=== PATIENT | female | born 1945 | race Caucasian/White ===

== ENCOUNTER 2025-08-12 08:46 | Emergency (ER) | payer MEDICARE, SELFPAY ==
--- OUTSIDE RECORDS SUMMARY | 2010-07-28 07:30 | XMS_ITS | Continuity of Care Document ---
Author Organization [facility] Address [address] [place] [phone] Phone Care Team Providers Care Container Crane Operator Name Role Phone David Siddiqui MD Unavailable Unavailable Medications Medication Instructions Dosage Effective Dates (start - stop) Status Comments Lexapro 10 mg Tab take as directed - Activ e SYNTHROID (unknown strength) take as directed Not Available - Active NITRO-DUR (unknown strength) take as directed Not Available - Active BYETTA (unknown strength) take as directed Not Available - Active Glucophage 500 mg Tab take as directed - Active Procedures Procedure Date OV, Est, Mod To High Severity, Mod Compl exity EYE EXAM & TREATMENT, Est, Comprehensive REFRACTION EYE EXAM & TREATMENT, Est, Comprehensive No Rx For This Visit REFRACTION EYE EXAM & TREATMENT, Est, Comprehensive REFRACTION EYE EXAM & TREATMENT, Est, Comprehensive REFRACTION Advance Directives Directive Yes / No Effective Date File Name Resuscitation Not Answered N/A N/A Life Support Not Answered N/A N/A Intubation Not Answered N/A N/A Antibiotics Not Answered N/A N/A IV Fluid Support Not Answered N/A N/A Tube Feed Not Answered N/A N/A Other Directive N/A N/A WARNING:The information contained in this section is historical and is provided for information only and does not constitute a legal document or any assurance that the information is still accurate. Please verify the information with the guevara of the legal document before using it for clinical purposes. Encounters Encounter Description Practice Location Reason(s) For Visit Diagnoses Date Provider Providers Copied on Encounter OV, Est, Mod To High Severity, Mod Complexity [facility], [address] [place] [address], [id number] , [place] tel: [phone] [facility] Other vitreous opacitiesDiabetes mellitus without mention of complication, type II or unspecified type, not stated as uncontrolled Jul-1 3-201 0 Artur David. [address] [place], [place], [id number] , [place]. tel: [phone] Referring Provider: David Serrano, [address] [place], [address] . tel:[phone] [facility], [address] [place] [address], [id number] , tel: [phone] [facility] Diabetes mellitus without mention of complication, type II or unspecified type, not stated as uncontrolledUnspeci fied visual disturbanceSenile nuclear sclerosis Sep-0 9-201 0 Artur David. [address] [place], [place], [id number] , [place]. tel: [phone] Referring Provider: David Serrano, [address] [place], [address] . tel:[phone] [facility], [address] [place] [address], [id number] , tel: [phone] [facility] Diabetes mellitus without mention of complication, type II or unspecified type, not stated as uncontrolledSenile nuclear sclerosis Jun-2 1200 9 Artur David. [address] [place], [place], [id number] , [place]. tel: [phone] Referring Provider: David Serrano, [address] [place], [address] . tel:[phone] [facility], [address] [place] [address], [id number] , [place] tel: [phone] [facility] No Information 9 Artur Hernandez. [address] [place], [place], [id number] , . tel: [phone] [facility], [address] [place] [address], [id number] , tel: [phone] [facility] Diabetes mellitus without mention of complication, type II or unspecified type, not stated as uncontrolled 8 Artur David. [address] [place], [place], [id number] , [place]. tel: [phone] Referring Provider: David Serrano, [address] [place], [address] . tel:[phone] [facility], [address] [place] [address], [id number] , tel: [phone] [facility] Diabetes mellitus without mention of complication, type II or unspecified type, not stated as uncontrolledSenile nuclear sclerosisCortical senile cataract 7 Artur David. [address] [place], [place], [id number] , . tel: [phone] Referring Provider: David Serrano, [address] [place], [address] . tel:[phone] Family History Family Member Type Diagnosis Age At Onset Father Problem (finding) Heart Disease Sister Problem (finding) Diabetes mellitus Grandfather (m) Problem (finding) Diabetes mellitus Mother Problem (finding) Diabetes mellitus Mother Problem (finding) HBP Payers Payer name Insurance type Covered alliance party ID Yanicka randy(s) [facility] [id number] Medicare MB [id number] Social History Type Description Quantity Date Captured Comments Alcohol Use Details No Caffeine Use Details 1 cup per day Tobacco Use Status No Information Smoking Status No Information Sex Female Chief Complaint And Reason For Visit No Information Reason For Referral Reason For Referral No Information History Of Present Illness Encounter Date Complaint History Of Prese nt Illness No Information Functional Status Date Functional Assessmen t No Information Instructions Date Instruction Additional Infor arnold - Return in 1 year f or Complete Exam, with Dr. Siddiqui. Related to Vitreous Floaters Diabetes Type II, - Diabetes type II: no background diabetic retinopathy, no signs of neovascularization noted. Discussed ocular and systemic benefits of blood sugar control. Related to Diabetes Type II Vitreous Floaters, O U - Discussed diagnosis with patient. No treatment is required at present time. Discussed signs and symptoms of retinal detachment. have gel in back of eye that can collapse on itself and cast shadows and cause pt to see floaters. over time floaters may become less noticable. Related to Vitreous Floaters Diabetes Type II, - Diabetes type II: no background diabetic retinopathy, and no signs of neovascularization noted. Discussed ocular and systemic benefits of blood sugar control. Related to Diabetes Type II - Return in 1 year f or Complete Exam, with Dr. Siddiqui. Related to Diabetes Type II Unspecified visual d isturbance, OU - new prob, no addtl w/u needed - vision not affected - will continue to monitor - No signs or evidence of Sarcoid in the eyes on todays exam. No floaters for retinal tears or detatchment seen, eyes are overall healthy. Related to Unspecified visual disturbance Cataract, Nuclear Sc lerosis, OU - established, stable - vision not affected - will continue to monitor Related to Cataract, Nuclear Sclerosis - Return in 1 year f or Complete Exam, with Dr. Siddiqui. Related to Diabetes Type II Diabetes Type II, - Diabetes type II: no background diabetic retinopathy, and no signs of neovascularization noted. Discussed ocular and systemic benefits of blood sugar control. 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 Cataract, Nuclear Sc lerosis, OU - stable - Cataracts are very mild, a simple change in eye glasses jett give her 20/20 va. Related to Cataract, Nuclear Sclerosis Assessments Type Assessment Date No Information Patient Care Teams Name Effective Dates (start - stop) Status Members No Information
--- OUTSIDE RECORDS SUMMARY | 2025-08-07 03:45 | XMS_ITS ---
Author Organization [employer] Address [address] [place], [place] [id number] Care Team Providers Care Shared Services And Outsourcing Manager Name Role Phone Derrek Guzman [phone] REASON FOR VISIT 3 month f/u Medications Medication SIG (Take, Route, Frequency, Duration) Notes Start Date End Date Status Lantus SoloStar 100 UNIT/ML Subcutaneous ; Duration: 55 Days Active Ozempic (1 MG/DOSE) 4 MG/3ML 1mg Subcutaneous once a week; Duration: 28 days Active Losartan Potassium 25 MG Oral; Duration: 90 Days Active Metoprolol Succinate ER 25 MG Oral; Duration: 90 Days Acti ve HumaLOG KwikPen 100 UNIT/ML Subcutaneous ; Duration: 136 Days Active FreeStyle Edwin 2 Sensor - ; Duration: 84 Days Active Cilostazol 50 MG Oral; Duration: 90 Days Active Atorvastatin Calcium 20 MG Oral; Duration: 90 Days Active Albuterol Sulfate HFA 108 (90 Base) MCG/ACT Inhalation; Duration: 67 Days Active busPIRone HCl 5 MG Oral; Duration: 90 Days Active Gabapentin 100 MG Oral; Duration: 90 Days Active Allopurinol 300 MG Oral; Duration: 90 Days Active Levothyroxine Sodium 50 MCG Oral; Duration: 90 Days Active Vital Signs Temperature 97.9 degrees Fahrenheit 08/07/20 25 Blood pressure systolic 160 mm Hg 08/07/20 25 Blood pressure diastolic 90 mm Hg 025 Heart Rate 73 /min 08/07/2025 Weight 119.0 lbs 08/07/2025 Oximetry 98 % 08/07/2025 Encounters Encounter Location Date Provider Diagnosis [facility] [address] [place] [address] 08/07/2025 Derrek Guzman Essential (primary) hypertension I10 ; Malignant neoplasm of upper-outer quadrant of left female breast C50.412 ; Thrombocytopenia D69.6 ; S/P TAVR (transcatheter aortic valve replacement) Z95.2 ; Mixed hyperlipidemia E78.2 ; Acquired hypothyroidism E03.9 ; Type 2 diabetes mellitus with diabetic neuropathy, unspecified (HC Category) E11.40 ; Peripheral vascular disease I73.9 and Presence of cardiac pacemaker Z95.0 Assessments Encounter Date Diagnosis (ICD Code) Assessment Notes Treatment Notes Treatment Clinical Notes Section Notes 08/07/2025 Essential (primary) hypertension (ICD-10 - I10) Changing from Dr. Machado. BP a little high today from stress. of Parkinsons in May 2025 and she is still getting over it. Lost a lot of weight. Going to [place] with friends next week to ride horses. She will follow up with Dr. Saba. 08/07/2025 Malignant neoplasm of upper-outer quadrant of left female breast (ICD-10 - C50.412) 08/07/2025 Thrombocytopenia (ICD-10 - D69.6) 08/07/2025 S/P TAVR (transcatheter aortic valve replacement) (ICD-10 - Z95.2) 08/07/2025 Mixed hyperlipidemia (ICD-10 - E78.2) 08/07/2025 Acquired hypothyroidism (ICD-10 - E03.9) 08/07/2025 Type 2 diabetes mellitus with diabetic neuropathy, unspecified (HC Category) (ICD-10 - E11.40) She will follow up with Dr. Anna. I will order her ozempic for her today. 08/07/2025 Peripheral vascular disease (ICD-10 - I73.9) 08/07/2025 Presence of cardiac pacemaker (ICD-10 - Z95.0) Plan Of Treatment Medication Medication Name Sig Start Date Stop Date Notes Ozempic (1 MG/DOSE) 4 MG/3ML 1mg Subcuta neous once a week; Duration: 28 days Next Appt Details Follow Up: 3 Months, Reason: Provider Name:Derrek campos, 11/06/2025 02:00:00 PM, [address] [facility], [place], [address], Progress Notes * Esperanza HEALY:1945 (79 yo F)Acc No.[id number]:08/07/2025 Progress Notes Patient: Billie GREGORY Provider: Janki Guzman MD :1945 A ge:79 Y S ex:Female Date:08/07/2025 Address:[address] [place] [address], [id number] Subjective: * Chief Complaints: * 1 . 3 month f/u. * ROS: G eneral/Constitutional: Denies C hills. D enies F ever. O phthalmologic: Denies B lurred vision. E NT: Denies S ore throat. R espiratory: Denies C ough. D enies S hortness of breath at rest. D enies W heezing. C ardiovascular: Denies C hest pain with exertion. D enies F luid accumulation in the legs. G astrointestinal: N/V/D D enies. D enies A bdominal pain. ? M usculoskeletal: Denies F alls. N eurologic: Denies B alance difficulty. D enies D ifficulty speaking. D enies G ait abnormality. * Medical History: D M - Dr. anna, Hematology - Dr. Loja., opthamology - Dr. Bean, Cardiology - dr Saba. * Family History: N o Family History documented.. * Medications: T aking Ozempic (1 MG/DOSE) 4 MG/3ML Solution Pen-injector Subcutaneous , Taking Lantus SoloStar 100 UNIT/ML Solution Pen-injector Subcutaneous , Taking HumaLOG KwikPen 100 UNIT/ML Solution Pen-injector Subcutaneous , Taking Metoprolol Succinate ER 25 MG Tablet Extended Release 24 Hour Oral , Taking Losartan Potassium 25 MG Tablet Oral , Taking Levothyroxine Sodium 50 MCG Tablet Oral , Taking Allopurinol 300 MG Tablet Oral , Taking Gabapentin 100 MG Capsule Oral , Taking busPIRone HCl 5 MG Tablet Oral , Taking Albuterol Sulfate HFA 108 (90 Base) MCG/ACT Aerosol Solution Inhalation , Taking Atorvastatin Calcium 20 MG Tablet Oral , Taking Cilostazol 50 MG Tablet Oral , Taking FreeStyle Edwin 2 Sensor - Miscellaneous , Medication List reviewed and reconciled with the patient Objective: * Vitals: W t:119.0lbs, BP:160/90mm Hg, HR:73/min, Temp:97.9F, Oxygen sat %:98%. * Examination: A General Examination: GENERAL APPEARANCE: p leasant, NAD. E YES: P ERRLA, EOMI. E ARS: A U TMs intact, pearly translucent, cone of light present. N PRIYANK/THYROID:?no carotid bruit, no thyroid nodules, no lymphadenopathy. H EART: n o murmurs, regular rate and rhythm. L UNGS: n o wheezes, rales, rhonchi. E XTREMITIES: n o edema. N EUROLOGIC: s peech clear, gait normal. Assessment: * Assessment: 1. E ssential (primary) hypertension - I10 (Primary) 2 . M alignant neoplasm of upper-outer quadrant of left female breast - C50.412 3 . T hrombocytopenia - D69.6 4 . S /P TAVR (transcatheter aortic valve replacement) - Z95.2 & #160; 5 . M ixed hyperlipidemia - E78.2 6 . A cquired hypothyroidism - E03.9 7 . T ype 2 diabetes mellitus with diabetic neuropathy, unspecified (HC Category) - E11.40 8 . P eripheral vascular disease - I73.9 9 . P resence of cardiac pacemaker - Z95.0 Plan: * Treatment: 2. T ype 2 diabetes mellitus with diabetic neuropathy, unspecified (HC Category) Refill Ozempic (1 MG/DOSE) Solution Pen-injector, 4 MG/3ML, 1mg, Subcutaneous, once a week, 28 days, 3 Milliliter, Refills 5. Clinical Notes: She will follow up with Dr. Anna. I will order her ozempic for her today. * Follow Up: 3 Months * Images: * Electronic signature of Jorge Guzman MD on 08/12/2025 at 08:57 AM CDT Sign off status: Pending * Provider: Janki Guzman MD Date: 0 08/07/2025 Generated for Christiani bruna/Ismael/eTransmitting on: 0 08/12/2025 08:57 AM CDT History and Physical Notes * Examination Category Sub-Category Detail Notes Category Not es A General Examination GENERAL APPEARANCE: pleasant, NA D EYES: PERRLA, EOMI EARS: AU TMs intact, vasile y translucent, cone of light present NECK/THYROID: no carotid bruit, no thyroid nodules, no lymphadenopathy HEART: no murmurs, regular rate and rhythm LUNGS: no wheezes, rales, r honchi NEUROLOGIC: speech clear, gait n ormal EXTREMITIES: no edema
--- OUTSIDE RECORDS SUMMARY | 2025-08-08 03:45 | XMS_ITS ---
Author Organization [employer] Address [address] [place], [place] [id number] Care Team Providers Care Ladies Suit Operator Name Role Phone Derrek Gzuman [phone] REASON FOR VISIT EST CARE Medications Medication SIG (Take, Route, Frequency, Duration) Notes Start Date End Date Status Lantus SoloStar 100 UNIT/ML Subcutaneous ; Duration: 55 Days Active Atorvastatin Calcium 20 MG Oral; Duration: 90 Days Active Cilostazol 50 MG Oral; Duration: 90 Days Active Albuterol Sulfate HFA 108 (90 Base) MCG/ACT Inhalation; Duration: 67 Days Active FreeStyle Edwin 2 Sensor - ; Duration: 84 Days Unknown Losartan Potassium 25 MG Oral; Duration: 90 Days Active Levothyroxine Sodium 50 MCG Oral; Duration: 90 Days Active busPIRone HCl 5 MG Oral; Duration: 90 Days Active Allopurinol 300 MG Oral; Duration: 90 Days Active Gabapentin 100 MG Oral; Duration: 90 Days Active Ozempic (1 MG/DOSE) 4 MG/3ML Subcutaneous; Duration: 28 Days Active Metoprolol Succinate ER 25 MG Oral; Duration: 90 Days Acti ve HumaLOG KwikPen 100 UNIT/ML Subcutaneous ; Duration: 136 Days Active Problems Problem Type SNOMED Code ICD Code Onset Dates Problem Status W/U Status Risk Notes Problem Essential hypertension (10603720) Essential (primary) hypertension (I10) 013 Active confirmed Problem Malignant neoplasm of upper-outer quadrant of female breast (581636337) Malignant neoplasm of upper-outer quadrant of left female breast (C50.412) 009 Active confirmed Problem Thrombocytopenia (574703954) Thrombocytopenia (D69.6) 021 Active confirmed Problem History of heart valve repair with prosthesis (622128010170515) S/P TAVR (transcatheter aortic valve replacement) (Z95.2) 023 Active confirmed Problem Mixed hyperlipidemia (981186945) Mixed hyperlipidemia (E78.2) 021 Active confirmed Problem Acquired hypothyroidism (892372895) Acquired hypothyroidism (E03.9) 018 Active confirmed Problem Diabetic peripheral neuropathy associated with type 2 diabetes mellitus (8433085982069) Type 2 diabetes mellitus with diabetic neuropathy, unspecified (HC Category) (E11.40) 023 Active confirmed Problem Peripheral vascular disease (462418509) Peripheral vascular disease (I73.9) 025 Active confirmed Problem Cardiac pacemaker in situ (011573274) Presence of cardiac pacemaker (Z95.0) 023 Active confirmed Encounters Encounter Location Date Provider Diagnosis [address] [address] 08/08/2025 Derrek Guzman Essential (primary) hypertension I10 ; [...] Treatment Notes Treatment Clinical Notes Section Notes 08/08/2025 Essential (primary) hypertension (ICD-10 - I10) 08/08/2025 Malignant neoplasm of upper-outer quadrant of left female breast (ICD-10 - C50.412) 08/08/2025 Thrombocytopenia (ICD-10 - D69.6) 08/08/2025 S/P TAVR (transcatheter aortic valve replacement) (ICD-10 - Z95.2) 08/08/2025 Mixed hyperlipidemia (ICD-10 - E78.2) 08/08/2025 Acquired hypothyroidism (ICD-10 - E03.9) 08/08/2025 Type 2 diabetes mellitus with diabetic neuropathy, unspecified (HC Category) (ICD-10 - E11.40) 08/08/2025 Peripheral vascular disease (ICD-10 - I73.9) 08/08/2025 Presence of cardiac pacemaker (ICD-10 - Z95.0) Plan Of Treatment Next Appt Details Provider Name:Derrek campos, 11/06/2025 02:00:00 PM, [address] [facility], [place], [address], Progress Notes * Mervin HEALYB:1945 (79 yo F)Acc No.[id number]:08/08/2025 Progress Notes Patient: Billie GREGORY Provider: Janki Guzman MD :1945 A ge:79 Y S ex:Female Date:08/08/2025 Address:[address] [place] [address], [id number] Subjective: * Chief Complaints: * 1 . EST CARE. * HPI: N arrative: Recent A1C = 8.2. * Medical History: D M - Dr. askew, Hematology - Dr. Loja., opthamology - Dr. Bean, Cardiology - dr Saba. * Medications: T aking Lantus SoloStar 100 UNIT/ML Solution Pen-injector Subcutaneous , Taking HumaLOG KwikPen 100 UNIT/ML Solution Pen-injector Subcutaneous , Taking Ozempic (1 MG/DOSE) 4 MG/3ML Solution Pen-injector Subcutaneous , Taking Metoprolol Succinate [...] Taking Cilostazol 50 MG Tablet Oral , Unknown FreeStyle Edwin 2 Sensor - Miscellaneous Objective: * Vitals: Assessment: * Assessment: 1. E ssential (primary) hypertension - I10 2 . M alignant neoplasm of upper-outer quadrant of left female breast - C50.412 3 . T hrombocytopenia - D69.6? 4. S /P TAVR (transcatheter aortic valve replacement) - Z95.2 5 . Mixed hyperlipidemia - E78.2 6 . A cquired hypothyroidism - E03.9 ? 7 . T ype 2 diabetes mellitus with diabetic neuropathy, unspecified (HC Category) - E11.40 8 . P eripheral vascular disease - I73.9 9 . P resence of cardiac pacemaker - Z95.0 Plan: * Treatment: * Images: * Electronic signature of Jorge Guzman MD on 08/12/2025 at 08:56 AM CDT Sign off status: Pending * Provider: Janki Guzman MD Date: 0 08/08/2025 Generated for Amy mcfarland/Ismael/Analyitting on: 0 08/12/2025 08:56 AM CDT History and Physical Notes * HPI (History of Present Illness) Category Sub-Category Detail Notes Category Not es Narrative Recent A1C = 8. 2.
--- OUTSIDE RECORDS SUMMARY | 2025-08-12 08:57 | XMS_ITS | CCD ---
Author Name Interface, [id number] lity Address [address] [address] Organization [facility] Address [address] [address] Care Team Providers Care Telecommunication Engineer Name Role Phone Freedom FOURNIER, Berenice Unavailable Unavailable Allergies and Adverse Reactions Reason for Visit Functional Status Medications Problems Social History
--- OUTSIDE RECORDS SUMMARY | 2025-08-12 08:57 | XMS_ITS | Patient Health Record ---
Author Organization [employer] Address [address] [place], [place] [id number] Care Team Providers Care Outsole Tacker Name Role Phone Derrek Guzman [phone] Reason For Referral No Information Medications Medication SIG (Take, Route, Frequency, Duration) Notes Start Date End Date Status Losartan Potassium 25 MG Oral; Duration: 90 Days Active Levothyroxine Sodium 50 MCG Oral; Duration: 90 Days Active Ozempic (1 MG/DOSE) 4 MG/3ML Subcutaneous; Duration: 28 Days Active Metoprolol Succinate ER 25 MG Oral; Duration: 90 Days Acti ve Lantus SoloStar 100 UNIT/ML Subcutaneous ; Duration: 55 Days Active Atorvastatin Calcium 20 MG Oral; Duration: 90 Days Active HumaLOG KwikPen 100 UNIT/ML Subcutaneous ; Duration: 136 Days Active Cilostazol 50 MG Oral; Duration: 90 Days Active Albuterol Sulfate HFA 108 (90 Base) MCG/ACT Inhalation; Duration: 67 Days Active busPIRone HCl 5 MG Oral; Duration: 90 Days Active FreeStyle Edwin 2 Sensor - ; Duration: 84 Days Unknown Allopurinol 300 MG Oral; Duration: 90 Days Active Gabapentin 100 MG Oral; Duration: 90 Days Active Problems Problem Type SNOMED Code ICD Code Onset Dates Problem Status W/U Status Risk Notes Problem Malignant neoplasm of upper-outer quadrant of female breast (538576685) Malignant neoplasm of upper-outer quadrant of left female breast (C50.412) 009 Active confirmed Problem Mixed hyperlipidemia (623138760) Mixed hyperlipidemia (E78.2) 021 Active confirmed Problem Essential hypertension (79845565) Essential (primary) hypertension (I10) 013 Active confirmed Problem Cardiac pacemaker in situ (686334945) Presence of cardiac pacemaker (Z95.0) 023 Active confirmed Problem Acquired hypothyroidism (344622114) Acquired hypothyroidism (E03.9) 018 Active confirmed Problem Thrombocytopenia (936543392) Thrombocytopenia (D69.6) 021 Active confirmed Problem Peripheral vascular disease (640802923) Peripheral vascular disease (I73.9) 025 Active confirmed Problem History of heart valve repair with prosthesis (550688380282466) S/P TAVR (transcatheter aortic valve replacement) (Z95.2) 023 Active confirmed Problem Diabetic peripheral neuropathy associated with type 2 diabetes mellitus (6127924175713) Type 2 diabetes mellitus with diabetic neuropathy, unspecified (HC Category) (E11.40) 023 Active confirmed Vital Signs Heart Rate 73 /min 08/07/2025 Temperature 97.9 degrees Fahrenheit 08/07/2025 Oximetry 98 % 08/07/2025 Blood pressure diastolic 90 mm Hg 08/07/2025 Blood pressure systolic 160 mm Hg 08/07/2025 Weight 119.0 lbs 08/07/2025 Encounters Encounter Location Date Provider Diagnosis [address] [address] 08/07/2025 Derrek Guzman Essential (primary) hypertension I10 [...] Lost a lot of weight. Going to [place] with friends next week to ride horses. [...] Of Treatment Next Appt Details Provider Name:Derrek Alfonso beth, 11/06/2025 02:00:00 PM, [address] [place] [address], [phone], Insurance Providers Payer Name Payer Address Payer Phone Subscriber Number Group Number Insured Name Patient Relationship to Insured Coverage Start Date Coverage End Date [facility] Advantage Plan [address] ROISO RODRIGUEZ [id number] Billie Finney Self - patient is the insured Medical (General) History Medical History History ICD Code DM - Dr. anna Hematology - Dr. Loja. opthamology - Dr. Bean Cardiology - dr Saba
--- OUTSIDE RECORDS SUMMARY | 2025-08-12 08:57 | XMS_ITS ---
Author Name Interface, [id number] lity Address [place] [address] [facility] Address [place] [address] Allergies and Adverse Reactions Plan Reason for Visit Encounters Diagnostic Results Medications Problems Vital Signs
--- OUTSIDE RECORDS SUMMARY | 2025-08-12 08:57 | XMS_ITS | Clinical Summary ---
Author Organization [facility] Facility Address [facility] [place]. [address] [place] [address] Phone Care Team Providers Care Community Facilitator Name Role Phone Jeet Bhandari MD Primary Care Provider [phone] Allergies Active Allergy Reactions Criticality Noted Date Comments Adhesive Tape-Silicones 07/16/2020 Reaction: Hives, Uticaria, Reaction: Hives, Uticaria Ciprofloxacin Low 07/16/2020 Levofloxacin 07/16/2020 Reaction: Tachycardia, Reaction: Tachycardia Morphine 07/16/2020 Reaction: Unspecified, Reaction: Unspecified Penicillins High 07/16/2020 Reaction: Shortness of breath, confusion, Reaction: Shortness of breath, confusion Simvastatin 07/16/2020 Reaction: CAUSES ACHES , Reaction: CAUSES ACHES Active Problems Problem Noted Date Diagnosed Date Gout, unspecified 03/10/2018 Type 2 diabetes mellitus wit h diabetic neuropathy, unspecified 08/24/2017 Stage 3 chronic kidney disease 08/24/2017 Unspecified diastolic (congestive) heart failure 06/23/2016 Unspecified abnormalities of gait and mobility 0 01/03/2015 Tachycardia, unspecified 01/03/2015 Benign neoplasm of colon, unspecified 07/02/2014 Vitamin D deficiency, unspecified 07/02/2014 Hypercalcemia 10/24/2013 Type 2 diabetes mellitus without complications 1 Irritable bowel syndrome without diarrhea 2010 Nontoxic multinodular goiter 07/08/2010 Obesity, unspecified 07/08/2010 Type 2 diabetes mellitus with other specified co mplication 07/08/2010 Hypothyroidism, unspecified 07/08/2010 Essential (primary) hypertension 07/08/2010 Immunizations Immunization Administration Dates Next Due DTaP 05/28/2008 DTaP 5 12/10/2016 Influenza Seasonal Injectabl e Preservative Free 07/16/2019,08/10/2018,07/25/2017,08/15,09/14/2015,08/17/2014,08/17/2013 ,08/25/2012,09/03/2011 Pneumococcal Conjugate 13-Valent 12/10/2016 Pneumococcal Polysaccharide 09/30/2010, 0 Zoster 11/30/2012 Social History Tobacco Use Types Packs/Day Years Used Date Smoking Tobacco: Former Alcohol Use Standard Drinks/Week Comments No 0 (1 standard drink = 0.6 oz pur e alcohol) Comments Unknown Sex and Gender Information Value Date Recorded Sex Assigned at Not on file Legal Sex Female 5:57 PM CDT Gender Identity Not on file Sexual Orientation Not on file Plan of Treatment Health Maintenance Due Date Last Done Comments MMR Vaccines (1 of 1 - Standard series) 12/28/2012 Varicella Vaccines (1 of 2 - 13+ 2-dose series) 12/28/2012 Zoster Vaccines (2 of 3) 01/25/2013 11/30/2012 Influenza Vaccine (#1) 2025 , 09/12/2023, 09/05/2022, Additional history exists COVID-19 Vaccine ( - 2024- season) 2025 08/14/2021, 01/18/2021, 12/29/2020, Additional history exists DTaP,Tdap,and Td Vaccines (5 - Td or Tdap) 08/21/2028 08/21/2018, 12/10/2016, 12/10/2016, Additional history exists Pneumococcal 50+ Yr Completed 12/10/2016, 09/05/2015, 09/05/2014, Additional history exists Ophthalmology Exam Discontinued 09/02/2020, 1 , 01/23/2020 Osteoporosis Screening Completed 07/17/2021 RSV Antibodies Aged Out 09/03/2023 No longer jean patricio based on patient's age to complete this topic RSV Vaccine Completed 09/03/2023 Medicare Wellness Discontinued 12/16/2023, , 01/14/2021, Additional history exists Lipid Panel Discontinued 12/13/2024, 07/11/2022, 02/02/2022, Additional history exists Hemoglobin A1C Discontinued 04/18/2025, 11/16, 06/06/2024, Additional history exists HIB Vaccines Aged Out No longer eligi ble based on patient's age to complete this topic HPV Vaccines Aged Out No longer eligi ble based on patient's age to complete this topic Hepatitis A Vaccines Aged Out No long er eligible based on patient's age to complete this topic Hepatitis B Vaccines Aged Out No long er eligible based on patient's age to complete this topic IPV Vaccines Aged Out No longer eligi ble based on patient's age to complete this topic Meningococcal B Vaccine Aged Out No l onger eligible based on patient's age to complete this topic Meningococcal Vaccine Aged Out No kike antoine eligible based on patient's age to complete this topic Procedures Procedure Name Priority Date/Time Associated Diagnosis Comments DIABETES EYE EXAM Routine 09/02/2020 12:00 AM CDT POCT GLYCOSYLATED HEMOGLOBIN (HGB A1C) Routine 07/16/2020 9:32 AM CDT LIPID PANEL Routine 03/28/2019 7:36 AM CDT from Last 3 Months or Most Recently Relevant to Health Maintenance Results * Hm Diabetes Eye Exam (09/02/2020 12:00 AM CDT) 09/02/2020 Bob Provider HEALTH MAINTENANCE Final Result [facility] * (ABNORMAL) POCT glycosylated hemoglobin (Hb A1C) (07/16/2020 9:32 AM CDT) Glycohemoglobin POC 6.9(H) 4.3 - 5.7 % [facility] 07/16/2020 9:32 AM CDT 07/16/2020 9:41 AM CDT Jeet Bhandari MD POINT OF CARE TEST ORDERABLES Final Result [facility] * (ABNORMAL) Lipid panel (03/28/2019 7:36 AM CDT) HDL 35(L) 45 - 65 mg/dL [facility] Total Cholesterol 177 115 - 200 mg/dL [facility] Comment: Blood assayed for this test may have falsely low test results due to interference from elevated levels of A-mnockk-n-benzoquinone imine (a metabolite of acetaminophen), n-acetylcysteine, and/or metamizole. Triglycerides 251(H) 0 - 200 mg/dL [facility] Comment: Blood assayed for this test may have falsely low test results due to interference from elevated levels of N-adagrb-d-benzoquinone imine (a metabolite of acetaminophen), n-acetylcysteine, and/or metamizole. LDL 92 50 - 190 mg/dL [facility] Comment: Blood assayed for this test may have falsely low test results due to interference from elevated levels of N-wwhzsz-n-benzoquinone imine (a metabolite of acetaminophen), n-acetylcysteine, and/or metamizole. Non-HDL Cholesterol 142 80 - 220 mg/dl [facility] Comment: Blood assayed for this test may have falsely low test results due to interference from elevated levels of P-llspdx-v-benzoquinone imine (a metabolite of acetaminophen), n-acetylcysteine, and/or metamizole. 03/28/2019 7:36 AM CDT 03/28/2019 7:51 AM CDT Historical Provider LAB BLOOD ORDERABLES Claudia lyles Result [facility] from Last 3 Months or Most Recently Relevant to Health Maintenance Care Teams Community Facilitator Relationship Specialty [place] [id number] [facility] [address] [place] [address] PCP - General 03/15/20
[2025-08-12 09:38] VITALS: BP 120/75; PULSE 85; TEMP 36.7; O2SAT 100; BMI 21.5
--- NOTE | 2025-08-12 09:49 | W.ED.FALL ---
HPI - Fall General: Chief Complaint: Fall Stated Complaint: fell of horse yesterday and abd pain Time Seen by Provider: 08/12/25 09:49 Source: patient and family Mode of arrival: wheelchair Limitations: no limitations History of Present Illness: Patient is an 79-year-old female presents to ED today along with family/friend for evaluation. Family states that patient was bucked off of a horse yesterday. They were subsequently seen at [facility]. She believes she underwent CT imaging of her head and cervical spine which were unremarkable. She did receive a few left-sided facial sutures. Family states that this morning patient has seemed weak and somewhat confused. They have noticed a large area of swelling/bruising to the left side of her abdomen. She has been ambulatory since the injury. We were able to get records from [facility]. It looks like she underwent CT head and CT facial bone imaging-no acute injuries. They did not scan cervical spine. She did have x-rays of her bilateral hands which were negative for fractures. MD complaint: fall Onset (ago): day(s) (yesterday) Fall from: other (fall from horse) Fall witnessed: yes, by family Place fall occurred: home Loss of consciousness: None Prolonged down time: no Symptoms prior to fall: none Context: other (bucked off a horse) Severity: moderate Associated symptoms-after fall: Reports abdominal pain (hematoma) and confusion; Denies chest pain, difficulty walking, headache(s), hematuria, lightheadedness or neck pain Related Data Home Medications ?Medication ?Instructions ?Recorded ?Confirmed albuterol sulfate 90 mcg/actuation 1 inh inhalation BID PRN Shortness 08/12/25 08/12/25 aerosol inhaler Of Breath Or Wheezing allopurinol 300 mg tablet 300 mg PO Q48H 08/12/25 08/12/25 aspirin 81 mg tablet,delayed 81 mg PO DAILY 08/12/25 08/12/25 release (Ericka Low Dose Aspirin) atorvastatin 20 mg tablet 20 mg PO DAILY 08/12/25 08/12/25 buspirone 5 mg tablet 5 mg PO TID 08/12/25 08/12/25 cilostazol 50 mg tablet 50 mg PO BID 08/12/25 08/12/25 dexamethasone 4 mg tablet 10 mg PO ONCE 08/12/25 08/12/25 gabapentin 100 mg capsule 100 mg PO TID 08/12/25 08/12/25 insulin glargine 100 unit/mL (3 5 unit SUBCUT BID 08/12/25 08/12/25 mL) subcutaneous pen (Lantus Solostar U-100 Insulin) insulin lispro 100 unit/mL See Rx Instructions .Route .COMPLEX 08/12/25 08/12/25 subcutaneous pen (Humalog KwikPen (U-100) Insulin) levothyroxine 50 mcg tablet 50 mcg PO QAM 08/12/25 08/12/25 losartan 25 mg tablet 25 mg PO DAILY 08/12/25 08/12/25 metoprolol succinate 25 mg 12.5 mg PO QPM 08/12/25 08/12/25 tablet,extended release 24 hr semaglutide 1 mg/dose (4 mg/3 mL) 1 mg SUBCUT Q7D 08/12/25 08/12/25 subcutaneous pen injector (Ozempic) Previous Rx's ?Medication ?Instructions ?Recorded sulfamethoxazole 800 1 tab PO BID 7 days #14 tabs 08/12/25 mg-trimethoprim 160 mg tablet (Bactrim DS) Allergies Allergy/AdvReac Type Severity Reaction Status Date / Time adhesive tape Allergy Unknown Verified 08/12/25 09:48 cephalexin (From Keflex) Allergy Unknown Verified 08/12/25 09:48 Cephalosporins Allergy Unknown Verified 08/12/25 09:48 Penicillins Allergy Unknown Verified 08/12/25 09:48 Review of Systems Eyes: Reports: blurry vision (L) and other (periorbital ecchymosis); Denies: change in vision, photophobia, eye discharge, floaters or seeing flashes ENMT: Denies: throat pain, odynophagia, ear or mastoid pain, ear discharge, nasal discharge, epistaxis or sinus pain Card: Denies: chest pain, palpitations, lightheadedness, syncope or pre-syncope Resp: Denies: dyspnea or pain on inspiration GI: Reports: abdominal pain (hematoma) : Denies: flank pain or hematuria Musc: Denies: neck pain, back pain, extremity pain or joint pain Neuro: Reports: confusion; Denies: headache(s), numbness in extremities, weakness in extremities, sensory changes, lack of coordination, difficulty walking, frequent falls, dizziness or Slurred speech present Physical Exam Const: COMMON NORMALS: no acute distress, patient oriented x3, no limitations, alert and well nourished GENERAL APPEARANCE: cooperative and frail appearing ORIENTATION/CONSCIOUSNESS: Yes awake, Yes oriented to person, Yes oriented to place and Yes oriented to time HENMT: COMMON NORMALS: normocephalic, atraumatic and TM's normal bilaterally HEAD & SCALP: normal to inspection, normocephalic and atraumatic; no Burks's sign, no hematoma and no raccoon eyes FACE & SINUS: ecchymosis, edema and other (L periorbital hematoma; superior orbital sutures) TYMPANIC MEMBRANE: TM's normal bilaterally MOUTH: other (no intraoral injuries noted) Eye: COMMON NORMALS: Equal, round and reactive pupils present and EOMs intact bilaterally GENERAL EYE: normal light reflex VISUAL ACUITY: Yes acuity normal PERIORBITAL: periorbital findings abnormal (L periorbital hematoma/ecchymosis ) PUPIL: Yes Equal, round and reactive pupils present DIRECT OPHTHALMOSCOPY: Yes normal light reflex OTHER: small L medial subconjunctival hemorrhage when I pry her eyelids open-she has a large hematoma present preventing her from opening eye; with eyelids held open she states her vision is normal-maybe slighly blurry-no evidence for globe injury Neck/C-Spine: COMMON NORMALS: full ROM GENERAL: Yes normal visual inspection CERVICAL SPINE: Yes cervical ROM normal, No pain with cervical ROM, No Cervical spine tenderness, No step off deformity and No Paracervical muscle tenderness Chest: COMMONS NORMALS: normal inspection of the chest and normal palpation of entire chest wall Resp: COMMON NORMALS: normal respiratory effort and clear to auscultation bilaterally AUSCULTATION: clear to auscultation bilaterally Cardio: COMMON NORMALS: regular rate and regular rhythm RATE: regular rate RHYTHM: regular rhythm GI: COMMON NORMALS: No hepatosplenomegaly present INSPECTION: Yes abdominal wall ecchymosis (L abdominal large hematoma) and Yes Abdominal wall edema AUSCULTATION: Yes normoactive bowel sounds PALPATION: Yes Tenderness to palpation present (GI) (overlying hematoma) and Yes No hepatosplenomegaly present : COMMON NORMALS: Yes no CVA tenderness BLADDER/KIDNEY EXAM: Yes no CVA tenderness Back/Pelvis: COMMON NORMALS: no CVA tenderness, thoracic and lumbar spine normal to inspection, no thoracic nor lumbar tenderness and thoraco-lumbar ROM normal Extremity: COMMON NORMALS: normal to inspection and full ROM NARRATIVE EXTREMITY EXAM: reporting bilateral hand pain-states these were x-rayed yesterday and unremarkable abrasions L forearm GENERAL: Yes normal exam except as noted Neuro: RM COMA SCALE: document GCS findings Rm coma scale eye opening: Spontaneous Rm coma scale verbal response: Orientated [place] coma scale motor response: Obey commands [place] coma scale total score: 15 COMMON NORMALS: patient oriented x3, CN's II-XII intact bilaterally, moves all extremities, no focal motor deficits and no sensory deficits noted SENSORIUM/ORIENTATION: Yes alert, Yes oriented to person, Yes oriented to place and Yes oriented to time SPEECH: speech normal GAIT: Yes Normal gait present Skin: COMMON NORMALS: no rashes or lesions noted GENERAL SKIN EXAM: no rashes or lesions noted TRAUMA: no lacerations or abrasions Course Vital Signs: Vital signs: Vital Signs Temperature 98.1 F 08/12/25 09:38 Pulse Rate 85 08/12/25 09:38 Blood Pressure 120/75 08/12/25 09:38 Pulse Oximetry 100 08/12/25 09:38 Oxygen Delivery Me thod Room Air 08/12/25 09:38 MDM - Fall Medical Decision Making Patient is an 79-year-old female here with her friend for re-evaluation following a fall from a horse yesterday. She was seen at [facility] yesterday. These records were obtained. She had CT imaging of her head and facial bones there that were unremarkable. She had x-rays of both hands which were unremarkable. Friend was concerned as she seemed weak and possibly confused this morning. She is alert and oriented upon arrival here with no deficits. CT imaging of her cervical spine and repeat imaging of her head were obtained and unremarkable. She did have a main physical complaint of a hematoma involving the left side of her abdomen. CT chest/abdomen/pelvis was obtained showing no intra thoracic or intraabdominal injuries. They did see the hematoma near her left iliac crest measuring 5 x 2cm. Patient's vital signs are stable. Blood work is nonactionable. UA is clear. She will be cleared for discharge. They were requesting prophylactic antibiotics for the laceration to her superior orbit as she is a diabetic and concerned about infection. These will be provided. Tetanus was updated. Recommend follow-up with primary care this week for reevaluation. Return to ED precautions discussed. Medical Records I reviewed the patient's medical records. Lab Data I reviewed the patient's lab results. 08/12/25 10:24 08/12/25 10:24 Radiology Impressions Cervical Spine CT 08/12/25 09:57 IMPRESSION: Mild arthritis with listhesis. Chest/Abdomen/Pelvis CT 08/12/25 09:57 IMPRESSION: No acute findings. IMPRESSION: 1. No acute intra-abdominal findings. 2. Ill-defined soft tissue hematoma lateral to the left iliac crest measures approximately 5.5 x 2.[address] 08/12/25 09:57 IMPRESSION: Left-sided facial/scalp hemorrhage. Laboratory Results WBC 10.35 10^3/uL (3.29-11.43) 08/12/25 10:24 RBC 3.37 10^6/uL (3.85-5.65) L 08/12/25 10:24 Hgb 11.40 g/dL (11.27-16.99) 08/12/25 10:24 Hct 34.2 % (36-47) L 08/12/25 10:24 MCV 101.5 fl (85-98) H 08/12/25 10:24 MCH 33.8 pg (27-33) H 08/12/25 10:24 MCHC 33.3 g/dL (30-55) 08/12/25 10:24 RDW 12.5 % (12.1-15.1) 08/12/25 10:24 Plt Count 112 10^3/cmm (157-399) L 08/12/25 10:24 MPV 11.5 fL (7.4-10.4) H 08/12/25 10:24 Neut % (Auto) 78.3 % 08/12/25 10:24 Lymph % (Auto) 13.3 % 08/12/25 10:24 Shackelford % (Auto) 5.2 % 08/12/25 10:24 Eos % (Auto) 2.5 % 08/12/25 10:24 Baso % (Auto) 0.5 % 08/12/25 10:24 Neut # (Auto) 8.10 10^3/uL (1.8-7.7) H 08/12/25 10:24 Lymph # (Auto) 1.4 10^3/uL (0.8-4.8) 08/12/25 10:24 Shackelford # (Auto) 0.5 10^3/uL (0.2-0.9) 08/12/25 10:24 Eos # (Auto) 0.3 10^3/uL (0.0-0.8) 08/12/25 10:24 Baso # (Auto) 0.1 10^3/uL (0.0-0.1) 08/12/25 10:24 Nucleated RBC % (auto) 0 % 08/12/25 10:24 Nucleated RBCs # 0.0 /100WBC 08/12/25 10:24 Sodium 140 mmol/L (136-145) 08/12/25 10:24 Potassium 4.8 mmol/L (3.5-5.1) 08/12/25 10:24 Chloride 105 mmol/L (98-107) 08/12/25 10:24 Carbon Dioxide 25 mmol/L (22-29) 08/12/25 10:24 Anion Gap 14.8 (5-19) 08/12/25 10:24 BUN 28 mg/dL (8-23) H 08/12/25 10:24 Creatinine 1.0 mg/dL (0.5-0.9) H 08/12/25 10:24 GFR Calculation Not Reportable 08/12/25 10:24 Glucose 185 mg/dL (65-115) H 08/12/25 10:24 Calculated Osmolality 300 mOsm/kg (285-295) H 08/12/25 10:24 Calcium 9.2 mg/dL (8.5-10.5) 08/12/25 10:24 Total Bilirubin 1.2 mg/dL (0.15-1.2) 08/12/25 10:24 AST 27 U/L (0-32) 08/12/25 10:24 ALT 44 U/L (0-33) H 08/12/25 10:24 Alkaline Phosphatase 77 U/L (35-105) 08/12/25 10:24 Total Protein 6.8 g/dL (6.6-8.7) 08/12/25 10:24 Albumin 4.0 g/dL (3.5-5.2) 08/12/25 10:24 Globulin 2.8 g/dL (1.3-4.6) 08/12/25 10:24 Urine Color Yellow (Yellow) 08/12/25 11:20 Urine Appearance Clear (CLEAR) 08/12/25 11:20 Urine pH 5.5 (5-7) 08/12/25 11:20 Ur Specific Mozelle 1.038 (1.005-1.030) H 08/12/25 11:20 Urine Protein Negative (Negative) 08/12/25 11:20 Urine Glucose (UA) Negative (Normal) 08/12/25 11:20 Urine Ketones Negative (Negative) 08/12/25 11:20 Urine Blood Negative (Negative) 08/12/25 11:20 Urine Nitrate Negative (Negative) 08/12/25 11:20 Urine Bilirubin Negative (Negative) 08/12/25 11:20 Urine Urobilinogen 1.0 mg/dL (Negative) 08/12/25 11:20 Ur Leukocyte Esterase Negative (Negative) 08/12/25 11:20 Urine RBC 0-2 /hpf (0-2) 08/12/25 11:20 Urine WBC 0-5 /hpf (0-5) 08/12/25 11:20 Ur Squamous Epith Cells 0-5 /hpf (0-5) 08/12/25 11:20 Amorphous Sediment Not Reportable 08/12/25 11:20 Urine Bacteria None seen /hpf (NONE) 08/12/25 11:20 Hyaline Casts 0-4 /lpf H 08/12/25 11:20 All radiology interpretation(s) finalized by discharge Discharge Plan Discharge Patient Disposition: Home Clinical Impression: Periorbital hematoma of left eye Fall from horse Qualifiers: Encounter type: subsequent encounter Qualified Code(s): V80.010D - Animal-rider injured by fall from or being thrown from horse in noncollision accident, subsequent encounter Hematoma of abdominal wall Qualifiers: Encounter type: initial encounter Qualified Code(s): S30.1XXA - Contusion of abdominal wall, initial encounter Condition: Stable Prescriptions: New sulfamethoxazole-trimethoprim [Bactrim DS] 800-160 mg tablet 1 tab PO BID 7 Days Qty: 14 0RF No Action buspirone 5 mg tablet 5 mg PO TID aspirin [Ericak Low Dose Aspirin] 81 mg Tablet,Delayed Release (Dr/Ec) 81 mg PO DAILY dexamethasone 4 mg tablet 10 mg PO ONCE allopurinol 300 mg tablet 300 mg PO Q48H gabapentin 100 mg capsule 100 mg PO TID metoprolol succinate 25 mg tablet extended release 24 hr 12.5 mg PO QPM albuterol sulfate 90 mcg/actuation HFA aerosol inhaler 1 inh INHALATION BID PRN (Reason: Shortness Of Breath Or Wheezing) insulin glargine [Lantus Solostar U-100 Insulin] 100 unit/mL (3 mL) insulin pen 5 unit SUBCUT BID Ozempic 1 mg/dose (4 mg/3 mL) pen injector 1 mg SUBCUT Q7D atorvastatin 20 mg tablet 20 mg PO DAILY cilostazol 50 mg tablet 50 mg PO BID levothyroxine 50 mcg tablet 50 mcg PO QAM losartan 25 mg tablet 25 mg PO DAILY insulin lispro [Humalog KwikPen Insulin] 100 unit/mL insulin pen See Rx Instructions .ROUTE .COMPLEX Patient Comments: days Rx Instructions: subcutaneously slidine scale Discharge Orders: Discharge ED (Routine); Ordered 08/12/25 Ordered By: Brittani Musa Patient Instructions: Patient Portal & Aga Instructions Activity Restrictions/Additional Instructions: As we discussed, CT imaging of her head and cervical spine are unremarkable. She did not have any internal injuries noted to her chest/abdomen/or pelvis. She was found to have a hematoma to her left abdominal wall. This should resolve with time. Please follow-up with her primary care provider next week for re-evaluation of her laceration/suture removal. Will place on prophylactic antibiotics. You can keep abrasions clean with warm soap and water-you can apply small amounts of [id number] neomycin to the abrasions. Print Language: Yoruba Coding Level of Care Code ED Die Out Worker for David Alcazar
--- NOTE | 2025-08-12 09:57 | CTR_ITS ---
PROCEDURE INFORMATION: Exam: CT Chest With Contrast; Diagnostic Exam date and time: 08/12/2025 10:41 AM Age: 79 years old Clinical indication: Injury or trauma; Other: Fell off horse; Additional info: Fall from horse; Large L abdominal hematoma TECHNIQUE: Imaging protocol: Diagnostic computed tomography of the chest with contrast. Radiation optimization: All CT scans at this facility use at least one of these dose optimization techniques: automated exposure control; mA and/or kV adjustment per patient size (includes targeted exams where dose is matched to clinical indication); or iterative reconstruction. Contrast material: OMNI 350; Contrast volume: 80 ml; Contrast route: INTRAVENOUS (IV); COMPARISON: CT cervical spin wo con* [id number] 08/12/2025 10:28 AM RADIATION DOSE METRICS: Total DLP (mGy-cm): 665.82 FINDINGS: Tubes, catheters and devices: There has been trans catheter aortic valve replacement. Cardiac pacemaker system noted. Lungs: Unremarkable. No consolidation. No masses. Pleural spaces: Unremarkable. No pneumothorax. No pleural effusion. Heart: Calcification of the mitral valve annulus noted. Lymph nodes: Unremarkable. No enlarged lymph nodes. Vasculature: Calcified atherosclerotic plaque noted. Bones/joints: Unremarkable. No acute fracture. Soft tissues: Unremarkable. PROCEDURE INFORMATION: Exam: CT Abdomen And Pelvis With Contrast Exam date and time: 08/12/2025 10:41 AM Age: 79 years old Clinical indication: Injury or trauma; Other: Fell off horse; Additional info: Fall from horse; Large L abdominal hematoma TECHNIQUE: Imaging protocol: Computed tomography of the abdomen and pelvis with contrast. Radiation optimization: All CT scans at this facility use at least one of these dose optimization techniques: automated exposure control; mA and/or kV adjustment per patient size (includes targeted exams where dose is matched to clinical indication); or iterative reconstruction. Contrast material: OMNI 350; Contrast volume: 80 ml; Contrast route: INTRAVENOUS (IV); COMPARISON: No relevant prior studies available. RADIATION DOSE METRICS: Total DLP (mGy-cm): 665.82 FINDINGS: Liver: Normal. No mass. Gallbladder and biliary ducts: Normal. No calcified stones. No ductal dilation. Pancreas: Normal. No ductal dilation. Spleen: Normal. No splenomegaly. Adrenal glands: Normal. No mass. Kidneys and ureters: Nonobstructive right renal stone. No hydronephrosis. Stomach and bowel: Moderate retained colonic and rectal stool. Appendix: No evidence of appendicitis. Intraperitoneal space: Unremarkable. No free air. No significant fluid collection. Vasculature: Mild ectasia infrarenal abdominal aorta. Lymph nodes: Unremarkable. No enlarged lymph nodes. Urinary bladder: Unremarkable as visualized. Reproductive: Unremarkable as visualized. Bones/joints: Old L2 compression fracture with mild loss of height. No acute fracture. Soft tissues: Ill-defined soft tissue hematoma lateral to the iliac crest on the left measures approximately 5.[address]/CT chest abdpel w/*[id number] IMPRESSION: No acute findings. IMPRESSION: 1. No acute intra-abdominal findings. 2. Ill-defined soft tissue hematoma lateral to the left iliac crest measures approximately 5.5 x 2.5 cm.
--- NOTE | 2025-08-12 09:57 | CTR_ITS ---
PROCEDURE INFORMATION: Exam: CT Head Without Contrast Exam date and time: 08/12/2025 10:28 AM Age: 79 years old Clinical indication: Injury or trauma; Other: Fell off horse; Prior surgery; Surgery date: 6+ months; Surgery type: HX sah w/ craniotomy TECHNIQUE: Imaging protocol: Computed tomography of the head without contrast. Radiation optimization: All CT scans at this facility use at least one of these dose optimization techniques: automated exposure control; mA and/or kV adjustment per patient size (includes targeted exams where dose is matched to clinical indication); or iterative reconstruction. 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 No intracranial hemorrhage. No midline shift. Cerebral ventricles: No ventriculomegaly. Paranasal sinuses: Visualized sinuses are unremarkable. No fluid levels. Mastoid air cells: Visualized mastoid air cells are well aerated. Bones: Right parietal craniotomy. No acute fracture. Soft tissues: Left preorbital and supraorbital scalp hemorrhage. CT/CT head wo con* [id number] IMPRESSION: Left-sided facial/scalp hemorrhage.
--- NOTE | 2025-08-12 09:57 | CTR_ITS ---
PROCEDURE INFORMATION: Exam: CT Cervical Spine Without Contrast Exam date and time: 08/12/2025 10:28 AM Age: 79 years old Clinical indication: Injury or trauma; Other: Fell off horse; Blunt trauma TECHNIQUE: Imaging protocol: Computed tomography of the cervical spine without contrast. Radiation optimization: All CT scans at this facility use at least one of these dose optimization techniques: automated exposure control; mA and/or kV adjustment per patient size (includes targeted exams where dose is matched to clinical indication); or iterative reconstruction. COMPARISON: CT head wo con* [id number] 08/12/2025 10:28 AM RADIATION DOSE METRICS: Total DLP (mGy-cm): 158.6 FINDINGS: Tubes, catheters and devices: Right carotid vascular stent. Bones: No fracture. 2 mm listhesis C4 anterior to C5. 1.5 mm listhesis C6 posterior to C7. Right-sided foraminal narrowing is mild at C5/6. Left-sided foraminal narrowing is minimal. Disc protrusion or extrusion. No spinal stenosis. Severe degenerative disc disease C5/6. Lungs: Apical pleural disease bilaterally. Questionable interstitial lung disease. Soft tissues: Unremarkable. CT/CT cervical spin wo con* [id number] IMPRESSION: Mild arthritis with listhesis.
[2025-08-12 10:33] LABS: Hematocrit 34.2 % (36-47); Hemoglobin 11.40 g/dL (11.27-16.99); Mean Corpuscular HGB Conc 33.3 g/dL (30-55); Mean Corpuscular Hemoglobin 33.8 pg (27-33); Mean Corpuscular Volume 101.5 fl (85-98); Nucleated Red Blood Cells % 0 %; Platelet Count 112 10^3/cmm (157-399); Red Blood Count 3.37 10^6/uL (3.85-5.65); White Blood Count 10.35 10^3/uL (3.29-11.43)
[2025-08-12 10:56] LABS: Alanine Aminotransferase 44 U/L (0-33); Albumin Level 4.0 g/dL (3.5-5.2); Alkaline Phosphatase 77 U/L (35-105); Blood Urea Nitrogen 28 mg/dL (8-23); Calcium 9.2 mg/dL (8.5-10.5); Carbon Dioxide 25 mmol/L (22-29); Chloride 105 mmol/L (98-107); Creatinine Clr Calc Pharmacy 34.3834; Globulin 2.8 g/dL (1.3-4.6); Glucose 185 mg/dL (65-115); Osmolality Calculated 300 mOsm/kg (285-295); Sodium 140 mmol/L (136-145); Total Protein 6.8 g/dL (6.6-8.7)
[2025-08-12 10:58] LABS: Anion Gap 14.8 (5-19); Aspartate Amino Transferase 27 U/L (0-32); Potassium 4.8 mmol/L (3.5-5.1)
[2025-08-12] MEDS: iohexol 350 mg/mL 500 mL Btl (per mL) IV (10:59)
[2025-08-12 11:28] LABS: Glucose Urine UA Negative (Normal); Nitrate Urine Negative (Negative)
[2025-08-12 11:33] LABS: Add Urine Microscopic? YES; Specific Gravity, Urine 1.038 (1.005-1.030)
[2025-08-12] MEDS: tetanus-dipt-pertussis 0.5 mL SDV IM (11:54)
== END 2025-08-12 12:17 | disposition home or self-care (01) ==
PROVIDERS: Emergency Provider Physician Assistant
DX: S00.12XD Contusion of left eyelid and periocular area, subsequent encounter (principal); S30.1XXD Contusion of abdominal wall, subsequent encounter; V80.010D Animal-rider injured by fall from or being thrown from horse in noncollision accident, subsequent encounter; Z79.82 Long term (current) use of aspirin; Z79.4 Long term (current) use of insulin
CPT/HCPCS: 70450; 71260; 72125; 74177; 80053; 81001; 85025; 90471; 90715; 99285